=== PATIENT | female | born 1990 | race Caucasian/White ===

== ENCOUNTER 2020-05-11 12:40 | Emergency (ER) | payer OTHER, SELFPAY ==
--- NOTE | 2020-05-11 12:48 | ED.GENADULT ---
HPI - General Adult General Chief complaint: Headache Stated complaint: Migraine Time Seen by Provider: 05/11/20 12:48 Source: patient Mode of arrival: ambulatory Limitations: no limitations History of Present Illness HPI narrative: 29-year-old female patient presents to the [facility] with complaints of a headache for the past 4 days. Patient states the headache is located right above the right eye. Patient states she is also had a little bit of a stuffy nose and runny nose releasing the as well. Denies any fevers, body aches or chills. Patient states she has tried Tylenol and ibuprofen but denies take anything for her headache today. Patient denies having a history of migraines in the past and states she has not medicated for it. Related Data Home Medications Medication Instructions Recorded Confirmed etonogestrel [Nexplanon] 1 implant SUBDERMAL ONCE 05/11/20 05/11/20 Allergies Allergy/AdvReac Type Severity Reaction Status Date / Time No Known Allergies Allergy Verified 05/11/20 13:14 Review of Systems Review of Systems: Narrative: CONSTITUTIONAL: Denies fever, chills, or sweats. EYES: Denies visual changes, redness, or discharge. ENT: Positive rhinorrhea, congestion, denies sore throat, or otalgia. CARDIOVASCULAR: Denies chest pain, palpitations, or edema. RESPIRATORY: Denies cough or dyspnea. GASTROINTESTINAL: Denies abdominal pain, nausea, vomiting, or diarrhea. GENITOURINARY: Denies dysuria or hematuria. SKIN: Denies rash or itching. MUSCULOSKELETAL: Denies back pain, joint pain, or myalgia. NEUROLOGIC: Positive headache, denies numbness, or weakness. PSYCHIATRIC: Denies anxiety or depression. PMFSH Past Medical History Medical History (Updated 05/11/20 @ 13:27 by STEFF Emanuel) Tinea versicolor Surgical History Surgical History (Updated 05/11/20 @ 12:48 by STEFF Emanuel) Hx of cholecystectomy Comments At the time of my signature I agree with nursing past medical history, surgical, social, and family history. There is no relevant family history pertinent to the presenting complaint. Exam Narrative: Exam Narrative: GENERAL: Well-appearing, well-nourished, and in no acute distress. HEAD: Normocephalic, atraumatic. EYES: PERRLA and EOMI. ENT: Nares with erythema and edema noted bilaterally but more so on the left nare, no rhinorrhea or epistaxis. Mucous membranes moist. Posterior pharynx with some postnasal drip and a little bit of erythema noted. Bilateral TMs are clear no erythema or foreign bodies to the canal. NECK: Supple. No lymphadenopathy CHEST: Clear to auscultation. No respiratory distress. HEART: Regular rate and rhythm. No murmur heard. Normal peripheral pulses. ABDOMEN: Soft, nontender, nondistended, normal active bowel sounds. EXTREMITIES: Normal range of motion. No edema. SKIN: Warm, dry, no rash. NEURO: Alert and oriented x4, GCS 15. Cranial nerves II through XII grossly intact. No focal neurological deficits. Normal muscle strength and tone. Normal deep tendon reflexes. Negative Babinski, normal finger to nose coordination he had normal heel to shaw glide. Speech is clear. Normal gait. Negative Romberg and no pronator drift Course Vital Signs Vital signs: Vital Signs Temperature 36.8 C 05/11/20 13:10 Pulse Rate 94 05/11/20 13:10 Respiratory Rate 16 05/11/20 13:10 Blood Pressure 118/64 05/11/20 13:10 Pulse Oximetry 99 05/11/20 13:10 Temperature 36.8 C 05/11/20 13:10 Pulse Rate 94 05/11/20 13:10 Respiratory Rate 16 05/11/20 13:10 Blood Pressure 118/64 05/11/20 13:10 Pulse Oximetry 99 05/11/20 13:10 Vital signs reviewed Medical Decision Making Differential Diagnosis Differential Diagnosis: Differential diagnosis: Migraine, cluster headache, tension headache, sinusitis, dental infection, TMJ problems, pseudotumor cerebri, meningitis, encephalitis, giant cell arteritis, glaucoma, subarachnoid hemorrhage, subdural or epidural
[2020-05-11 13:10] VITALS: BP 118/64; PULSE 94; RESP 16; TEMP 36.8; O2SAT 99
[2020-05-12 12:21] LABS: SARS-CoV-2 RNA PCR Negative
== END 2020-05-11 13:30 | disposition home or self-care (01) ==
PROVIDERS: Emergency Provider Nurse Practitioner Family
DX: J00 Acute nasopharyngitis [common cold] (principal); J01.90 Acute sinusitis, unspecified; R51.9 Headache, unspecified; J30.2 Other seasonal allergic rhinitis; Z20.822 Contact with and (suspected) exposure to COVID-19
CPT/HCPCS: 99213; C9803; G0463; U0003; U0005

== ENCOUNTER 2020-12-04 08:45 | Emergency (ER) | payer OTHER, SELFPAY ==
[2020-12-04 08:51] VITALS: BP 134/71; PULSE 88; RESP 16; TEMP 36.6; O2SAT 100
[2020-12-04 09:02] VITALS: BP 134/71; PULSE 88; RESP 16; TEMP 36.6; O2SAT 100
--- NOTE | 2020-12-04 09:12 | ED.ABDPAIN ---
HPI - Abdominal Pain General Chief Complaint: Abdominal Pain Stated Complaint: lower left pain with nausea Time Seen by Provider: 12/04/20 09:13 Source: patient, RN notes reviewed and old records reviewed Mode of arrival: ambulatory Limitations: no limitations History of Present Illness HPI narrative: 30-year-old female who presents to [facility] with complaints of sharp left lower intermittent abdominal pain for the past 3 days. with constant nausea voiced with no emesis or diarrhea, states normal bowel movement yesterday. Patient reports that she had Nexplanon removed 2 months ago and that was her last menses, did a home test recently and was negative. Patient denies any burning or pain with urination, denies any vaginal discharge or any concern for STD's.Patient reports that she has had no history of kidney stones or any previous ovarian cysts,has taken Pepto Bismol for her nausea. MD elicited complaint: abdominal pain and other (nausea) Related Data Allergies Allergy/AdvReac Type Severity Reaction Status Date / Time No Known Allergies Allergy Verified 12/04/20 09:02 Review of Systems Review of Systems: CONSTITUTIONAL: Denies fever, chills, or sweats. EYES: Denies visual changes, redness, or discharge. ENT: Denies rhinorrhea, congestion, sore throat, or otalgia. CARDIOVASCULAR: Denies chest pain, palpitations, or edema. RESPIRATORY: Denies cough or dyspnea. GASTROINTESTINAL: Intermittent sharp left abdominal pain, nausea,no vomiting, or diarrhea. GENITOURINARY: Denies dysuria or hematuria, no vaginal discharge SKIN: Denies rash or itching. MUSCULOSKELETAL: Denies back pain, joint pain, or myalgia. NEUROLOGIC: Denies headache, numbness, or weakness. PSYCHIATRIC: Denies anxiety or depression. All systems reviewed & are unremarkable except as noted in HPI and below PMFSH Past Medical History Medical History Tinea versicolor Surgical History Surgical History Hx of cholecystectomy Family History Family History (Updated 12/05/20 @ 17:26 by Haylee Doss NP) Other No significant family history Social History Social History (Updated 12/05/20 @ 17:26 by Haylee Doss NP) Years smoked: 8 Smoking status: Current every day smoker Alcohol intake: current Alcohol use details: rare social Substance use: never Living arrangements: with family Gender identity (if verbalized by the patient): Female Comments At time of signature, agree with nursing past medical, surgical, social and family history. There is no relevant family history pertinent to the presenting complaint Exam Narrative: GENERAL: Well-appearing, well-nourished, and in no acute distress. HEAD: Normocephalic, atraumatic. EYES: PERRLA and EOMI. ENT: Nares clear, no rhinorrhea or epistaxis. Mucous membranes moist.TM's normal with good light reflex, throat pink with no lesions or exudates, no tonsil enlargement NECK: Supple.no lymphadenopathy CHEST: Clear to auscultation. No respiratory distress.no cough or tachypnea, SAO2 100% on room air HEART: Regular rate and rhythm. No murmur heard. Normal peripheral pulses. ABDOMEN: Soft, mild tenderness on palpation left lower abdomen, nondistended, normal active bowel sounds, reports nausea no emesis or diarrhea, No CVA tenderness on exam. EXTREMITIES: Normal range of motion. No edema. SKIN: Warm, dry, no rash. NEURO: No focal deficits. Alert and oriented x3. Course Vital Signs Vital signs: Vital Signs Temperature 36.6 C 12/04/20 08:51 Pulse Rate 88 12/04/20 08:51 Respiratory Rate 16 12/04/20 08:51 Blood Pressure 134/71 12/04/20 08:51 Pulse Oximetry 100 12/04/20 08:51 Temperature 36.6 C 12/04/20 09:02 Pulse Rate 88 12/04/20 09:02 Respiratory Rate 16 12/04/20 09:02 Blood Pressure 134/71 12/04/20 09:02 Pulse Oximetry 100 12/04/20 09:02
== END 2020-12-04 09:40 | disposition home or self-care (01) ==
PROVIDERS: Emergency Provider Registered Nurse
DX: N39.0 Urinary tract infection, site not specified (principal); R11.0 Nausea; F17.200 Nicotine dependence, unspecified, uncomplicated
CPT/HCPCS: 81003; 81025; 87077; 87086; 87088; 87186; 99213; G0463

== ENCOUNTER 2021-04-23 14:29 | Emergency (ER) | payer OTHER, SELFPAY ==
[2021-04-23 14:38] VITALS: BP 131/73; PULSE 96; RESP 16; TEMP 37.4; O2SAT 99
[2021-04-23 14:39] VITALS: BP 131/73; PULSE 96; RESP 16; TEMP 37.4; O2SAT 99
--- NOTE | 2021-04-23 14:48 | ED.NAVMDI ---
HPI - Nausea/Vomiting/Diarrhea General Chief complaint: Urogenital-Female Stated complaint: Dizzy nausea and lower left side pain Time Seen by Provider: 04/23/21 14:30 Source: patient and RN notes reviewed History of Present Illness HPI Narrative: Patient is a 30-year-old female who presents the urgent care with complaints of left lower sided pain with intermittent nausea. Patient states she is also had intermittent bouts of dizziness upon standing quickly. States that it started a couple days ago and she has not been able to go to work for the last 2 days due to the pain. Patient also reports of urinary frequency however she has been drinking a lot of water . Denies of dysuria, urgency, fever, vomiting, diarrhea. Denies of any history of kidney stones or ovarian cyst. States that she made a bowel movement yesterday. Denies any blood in the urine. No other acute complaints. No acute distress noted. Plan of the plan of care. Some parts of this dictation were generated by voice recognition software and may contain typographical and/or grammatical inaccuracies. Related Data Home Medications Medication Instructions Recorded Confirmed No Home Medications 04/23/21 04/23/21 Allergies Allergy/AdvReac Type Severity Reaction Status Date / Time No Known Allergies Allergy Verified 04/23/21 14:38 Review of Systems Review of Systems: CONSTITUTIONAL: Denies fever, chills, or sweats. EYES: Denies visual changes, redness, or discharge. ENT: Denies rhinorrhea, congestion, sore throat, or otalgia. CARDIOVASCULAR: Denies chest pain, palpitations, or edema. RESPIRATORY: Denies cough or dyspnea. GASTROINTESTINAL: Reports of lower left abdominal pain with intermittent nausea GENITOURINARY: Denies dysuria or hematuria. SKIN: Denies rash or itching. MUSCULOSKELETAL: Denies back pain, joint pain, or myalgia. NEUROLOGIC: Denies headache, numbness, or weakness. All other systems reviewed are negative, except as documented in HPI. [facility] Past Medical History Medical History Tinea versicolor Surgical History Surgical History Hx of cholecystectomy Family History Family History (Updated 12/05/20 @ 17:26 by Haylee Doss NP) Other No significant family history Social History Social History (Updated 12/05/20 @ 17:26 by Haylee Doss NP) Years smoked: 8 Smoking status: Current every day smoker Alcohol intake: current Alcohol use details: rare social Substance use: never Gender identity (if verbalized by the patient): Female Comments At the time of my signature, I reviewed and agree with the nursing past medical, surgical, social, and family history. There is no relevant family history pertinent to the patient complaint. Exam Narrative: GENERAL: This is a well-nourished, well-developed patient, in no apparent distress. HEAD: normocephalic, atraumatic. EYES: PERRL. Sclera clear/white. Vision is grossly intact. EARS: External ears normal NOSE: External nose normal with no obvious nasal discharge, nares without redness, no rhinorrhea. THROAT: Mucous membranes moist NECK: Neck supple CARDIOVASCULAR: Regular rate and rhythm without murmurs, gallops, or rubs. RESPIRATORY: Clear to auscultation. Breath sounds equal bilaterally. No wheezes, rales, or rhonchi. GASTROINTESTINAL: Abdomen soft, mild left lower tenderness (suspected ovarian cyst), nondistended. Bowel sounds are hyperactive. SKIN: warm, intact with no suspicious lesions or rash, good texture and turgor. NEURO: awake, alert, and oriented to person, place and time. There were no obvious focal neurologic abnormalities. EXTREMITIES: No clubbing, cyanosis, or edema. Course Course Level of Care: Express Care Visit Vital Signs Vital signs: Vital Signs Temperature 99.4 F 04/23/21 14:38 Pulse Rate 96 04/23/21 14:38 Respiratory Rat
== END 2021-04-23 15:03 | disposition home or self-care (01) ==
PROVIDERS: Emergency Provider Nurse Practitioner Family
DX: R10.32 Left lower quadrant pain (principal); F17.200 Nicotine dependence, unspecified, uncomplicated
CPT/HCPCS: 81003; 81025; 99212; G0463

== ENCOUNTER 2021-09-10 13:57 | Emergency (ER) | payer OTHER, SELFPAY ==
[2021-09-10 14:07] VITALS: BP 110/63; PULSE 98; RESP 16; TEMP 37.2; O2SAT 99
--- NOTE | 2021-09-10 15:27 | ED.URI ---
HPI - URI/Sore Throat General Chief Complaint: Upper Respiratory Infection Stated Complaint: watery eyes sore throat cough Time Seen by Provider: 09/10/21 15:27 Source: patient and RN notes reviewed Mode of arrival: ambulatory Limitations: no limitations History of Present Illness HPI Narrative: 30-year-old female presents with concern for watery eyes, sore throat, cough. Reports this is day 2 of symptoms. She reports she is taken [id number] cold medicines without relief. She denies, bodies, sweats, shortness of breath MD elicited complaint: cough and sore throat Related Data Allergies Allergy/AdvReac Type Severity Reaction Status Date / Time No Known Allergies Allergy Verified 09/10/21 14:10 Review of Systems Review of Systems: CONSTITUTIONAL: Reports malaise. Chills, sweats, or fever. EYES: Denies visual changes, redness. Reports watery eyes ENT: Denies rhinorrhea, congestion, sinus pain, otalgia. Reports sore throat. CARDIOVASCULAR: Denies chest pain, palpitations, or edema. RESPIRATORY: Reports cough. Denies dyspnea. GASTROINTESTINAL: Denies abdominal pain, nausea, vomiting, diarrhea SKIN: Denies rash or itching. MUSCULOSKELETAL: Denies myalgia. NEUROLOGIC: Denies headache. All systems reviewed & are unremarkable except as noted in HPI and below PMFSH Past Medical History Medical History Tinea versicolor Surgical History Surgical History Hx of cholecystectomy Family History Family History (Updated 12/05/20 @ 17:26 by Haylee Doss NP) Other No significant family history Social History Social History (Updated 12/05/20 @ 17:26 by Haylee Doss NP) Years smoked: 8 Smoking status: Current every day smoker Alcohol intake: current Alcohol use details: rare social Substance use: never Gender identity (if verbalized by the patient): Female Comments At time of signature, agree with nursing past medical, surgical, social and family history. There is no relevant family history pertinent to the presenting complaint Exam Narrative: GENERAL: Nontoxic appearing and in no acute distress. HEAD: Normocephalic EYES: PERRLA, conjunctivae clear ENT: Nares clear, clear discharge. Mucous membranes moist. TM pearly fontanez with sharp light reflex bilaterally; no tragal tenderness. Oropharynx not erythematous without lesions. Tonsils not enlarged and without exudate, no drooling, no hoarseness, no trismus, uvula midline. NECK: Supple. No lymphadenopathy CHEST: Clear to auscultation, breath sounds equal. No wheezing, rhonchi, rales, or stridor. No respiratory distress, speaks in full sentences. HEART: Regular rate and rhythm. No murmur heard. SKIN: Warm, dry, no rash. NEURO: Alert and oriented x3. PSYCH: Normal mood and affect Course Course Emergency Course: Patient is aware of diagnosis, understands and agrees to treatment plan. Anticipatory guidance given. Patient agrees to follow-up as directed and is aware of reasons to seek care at the emergency department. Portions of this record may have been created with voice recognition software Level of Care: Express Care Visit Vital Signs Vital signs: Vital Signs Temperature 99 F 09/10/21 14:07 Pulse Rate 98 09/10/21 14:07 Respiratory Rate 16 09/10/21 14:07 Blood Pressure 110/63 09/10/21 14:07 Pulse Oximetry 99 09/10/21 14:07 Oxygen Delivery Room Air 09/10/21 14:07 Temperature 99 F 09/10/21 14:07 Pulse Rate 98 09/10/21 14:07 Respiratory Rate 16 09/10/21 14:07 Blood Pressure 110/63 09/10/21 14:07 Pulse Oximetry 99 09/10/21 14:07 Oxygen Delivery Room Air 09/10/21 14:07 Reviewed. MDM - URI/Sore Throat MDM Narrative Medical decision making narrative: Differential diagnosis considered: [place] virus, strep pharyngitis, allergic rhinitis, upper respiratory tract infection, sinusitis, r
== END 2021-09-10 15:35 | disposition home or self-care (01) ==
PROVIDERS: Emergency Provider Nurse Practitioner
DX: U07.1 COVID-19 (principal)
CPT/HCPCS: 87426; 99213; C9803; G0463

== ENCOUNTER 2021-10-18 13:23 | Emergency (ER) | payer OTHER, SELFPAY ==
[2021-10-18 13:28] VITALS: BP 120/73; PULSE 108; RESP 14; TEMP 37.5; O2SAT 100
--- NOTE | 2021-10-18 13:33 | ED.EYEPROB ---
HPI - Eye Problem General Chief complaint: Eye Problems Stated complaint: Eye Problem Time Seen by Provider: 10/18/21 13:36 Source: patient and RN notes reviewed Mode of arrival: ambulatory Limitations: no limitations History of Present Illness HPI Narrative: 30-year-old female presents concern for left upper eyelid swelling, redness, pain. Reports symptoms started Monday and its continued to become more swollen, red, painful. Reports she has been using a warm washcloth and eyedrops that her grandpa had. She denies vision changes or purulent drainage. MD chief complaint: other (Eyelid swelling) Related Data Allergies Allergy/AdvReac Type Severity Reaction Status Date / Time No Known Allergies Allergy Verified 10/18/21 13:32 Review of Systems Review of Systems: CONSTITUTIONAL: Denies malaise, chills, sweats, or fever. EYES: Denies visual changes. Denies eye redness, irritation, discharge. Reports left upper eyelid redness, swelling, pain ENT: Denies rhinorrhea, congestion, sinus pain, otalgia or sore throat. SKIN: Denies rash or itching. NEUROLOGIC: Denies numbness, weakness, or headache. PSYCHIATRIC: Denies anxiety or depression. All systems reviewed & are unremarkable except as noted in HPI and below PMFSH Past Medical History Medical History Tinea versicolor Surgical History Surgical History Hx of cholecystectomy Family History Family History (Updated 12/05/20 @ 17:26 by Haylee Doss NP) Other No significant family history Social History Social History (Updated 12/05/20 @ 17:26 by Haylee Doss NP) Years smoked: 8 Smoking status: Current every day smoker Alcohol intake: current Alcohol use details: rare social Substance use: never Gender identity (if verbalized by the patient): Female Comments At time of signature, agree with nursing past medical, surgical, social and family history. There is no relevant family history pertinent to the presenting complaint Exam Narrative: GENERAL: Well-appearing, well-nourished, and in no acute distress. HEAD: Normocephalic, atraumatic. EYES: PERRLA, sclera clear, and EOMI. No nystagmus. Bilateral conjunctivae clear. lower eyelid unremarkable, no periorbital edema noted. Left upper eyelid hordeolum noted with surrounding erythema, tenderness, edema, edema is isolated to the eyelid ENT: Nares clear, turbinates pink, no rhinorrhea or epistaxis. Mucous membranes moist. TM pearly fontanez with sharp light reflex bilaterally; no tragal tenderness. NECK: Supple. CHEST: No respiratory distress. Speaks in full sentences. HEART: Regular rate and rhythm. SKIN: Warm, dry, no visible rash. NEURO: Alert and oriented x3. PSYCH: Normal mood and affect Course Course Emergency Course: Patient is aware of diagnosis, understands and agrees to treatment plan. Anticipatory guidance given. Patient agrees to follow-up as directed and is aware of reasons to seek care at the emergency department. Portions of this record may have been created with voice recognition software Level of Care: Express Care Visit Vital Signs Vital signs: Reviewed. MDM - Eye Problem MDM Narrative Medical decision making narrative: Consideration of the following conditions may be warranted for the presenting problem, they are not final diagnoses: Bacterial conjunctivitis, allergic conjunctivitis, viral conjunctivitis, foreign body, blepharitis, chalazion, hordeolum, corneal abrasion, preseptal cellulitis, orbital cellulitis. No evidence of proptosis, ophthalmoplegia, vision loss, pain with eye movement. Exam findings show no acute concerns or changes; patient is non-toxic appearing and is in no distress. Patient is appropriate for outpatient treatment and follow-up. Critical Care Time Critical Care Time Critical Care Time: No Discharge Plan Discharge Clinical
== END 2021-10-18 13:47 | disposition home or self-care (01) ==
PROVIDERS: Emergency Provider Nurse Practitioner
DX: H00.014 Hordeolum externum left upper eyelid (principal); F17.200 Nicotine dependence, unspecified, uncomplicated
CPT/HCPCS: 99213; G0463

== ENCOUNTER 2022-06-04 10:36 | Emergency (ER) | payer OTHER, SELFPAY ==
[2022-06-04 10:41] VITALS: BP 119/52; PULSE 117; RESP 20; TEMP 36.8; O2SAT 99
--- NOTE | 2022-06-04 10:59 | ED.URI ---
HPI - URI/Sore Throat General Chief Complaint: Upper Respiratory Infection Stated Complaint: Cough/Chest Congestion Time Seen by Provider: 06/04/22 11:00 Source: patient and RN notes reviewed Mode of arrival: ambulatory Limitations: no limitations History of Present Illness HPI Narrative: 31-year-old female presented for complaint of sinus pressure congestion and right ear pain for 3 days. She has been taking Sudafed for symptoms. Endorses occasional shortness of breath with exertion. States right ear feels full and pressure. Denies tinnitus, ear drainage, dizziness, Chest pain, palpitations, vomiting, diarrhea, fevers or chills. Patient is 33 weeks gestation. MD elicited complaint: cough Related Data Home Medications Medication Instructions Recorded Confirmed vitamin-ferrous fumarate 1 tablet PO DAILY 06/04/22 06/04/22 28 mg iron-folic acid 800 mcg tablet ( Tablet) Allergies Allergy/AdvReac Type Severity Reaction Status Date / Time No Known Allergies Allergy Verified 06/04/22 10:59 Review of Systems Review of Systems: CONSTITUTIONAL: Denies malaise, chills, sweats, fever EYES: Denies visual changes, redness, or discharge ENT: Reports rhinorrhea, congestion, sinus pain, otalgia CARDIOVASCULAR: Denies chest pain, palpitations, edema RESPIRATORY: Reports cough, post nasal drainage. Denies dyspnea GASTROINTESTINAL: Denies abdominal pain, nausea, vomiting, diarrhea SKIN: Denies rash or itching MUSCULOSKELETAL: Denies myalgia NEUROLOGIC: Denies headache PMFSH Past Medical History Medical History Tinea versicolor Surgical History Surgical History Hx of cholecystectomy Family History Family History Other No significant family history Social History Social History Years smoked: 8 Smoking status: Current every day smoker Alcohol intake: current Alcohol use details: rare social Substance use: never Living arrangements: with family Gender identity (if verbalized by the patient): Female Exam Narrative: GENERAL: mildly Ill-appearing, nontoxic no acute distress. HEAD: Normocephalic EYES: PERRLA, conjunctivae clear ENT: Mucous membranes moist. nasal congestion. left TM pearly fontanez with normal light reflex; Right TM erythematous and bulging with purulent effusion; no tragal tenderness. Oropharynx erythematous without lesions or exudate, no drooling, no hoarseness, no trismus, uvula midline. No tripod positioning, muffled voice, soft palate or pharyngeal wall bulging NECK: Supple. No lymphadenopathy CHEST: Clear to auscultation, breath sounds equal. No wheezing, rhonchi, rales, or stridor. No respiratory distress, speaks in full sentences. HEART: Regular rate and rhythm. No murmur heard. ABD: Gravid SKIN: Warm, dry, no rash. NEURO: Alert and oriented x3. PSYCH: Normal mood and affect Course Course Emergency Course: Patient is aware of diagnosis, understands and agrees to treatment plan. Anticipatory guidance given. Patient agrees to follow-up as directed and is aware of reasons to seek care at the emergency department. Portions of this record may have been created with voice recognition software Level of Care: Express Care Visit Vital Signs Vital signs: Vital Signs Temperature 98.2 F 06/04/22 10:41 Pulse Rate 117 H 06/04/22 10:41 Respiratory Rate 20 06/04/22 10:41 Blood Pressure 119/52 L 06/04/22 10:41 Pulse Oximetry 99 06/04/22 10:41 Oxygen Delivery Room Air 06/04/22 10:41 Temperature 98.2 F 06/04/22 10:41 Pulse Rate 117 H 06/04/22 10:41 Respiratory Rate 20 06/04/22 10:41 Blood Pressure 119/52 L 06/04/22 10:41 Pulse Oximetry 99 06/04/22 10:41 Oxygen Delivery Room Air 06/04/22 10:41
== END 2022-06-04 11:08 | disposition home or self-care (01) ==
PROVIDERS: Emergency Provider Nurse Practitioner Family; PCP Emergency Medicine
DX: H66.001 Acute suppurative otitis media without spontaneous rupture of ear drum, right ear (principal); F17.210 Nicotine dependence, cigarettes, uncomplicated
CPT/HCPCS: 99213; G0463

== ENCOUNTER 2023-05-23 12:42 | Emergency (ER) | payer OTHER, SELFPAY ==
[2023-05-23 12:46] VITALS: BP 113/51; PULSE 100; RESP 20; TEMP 36.7; O2SAT 100
--- NOTE | 2023-05-23 12:58 | ED.URI ---
HPI - URI/Sore Throat General Stated Complaint: upper respiratory Time Seen by Provider: 05/23/23 12:58 Source: patient and RN notes reviewed Mode of arrival: ambulatory Limitations: no limitations History of Present Illness HPI Narrative: 32 y/o female presented for c/o Headache, body aches, sinus congestion, cough, fever/chills. Onset 3 days. Endorses her kids have been sick with similar symptoms. Taking OTC meds without relief. Denies sob, wheezing, n/v/d. MD elicited complaint: cough Related Data Home Medications Medication Instructions Recorded Confirmed No Home Medications 05/23/23 05/23/23 Allergies Allergy/AdvReac Type Severity Reaction Status Date / Time No Known Allergies Allergy Verified 05/23/23 12:59 Review of Systems Review of Systems: CONSTITUTIONAL: Endorses malaise, chills, sweats, fever EYES: Denies visual changes, redness, or discharge ENT: Reports rhinorrhea, congestion, denies otalgia, sore throat CARDIOVASCULAR: Denies chest pain, palpitations, edema RESPIRATORY: Reports cough, post nasal drainage. Denies dyspnea GASTROINTESTINAL: Denies abdominal pain, nausea, vomiting, diarrhea SKIN: Denies rash or itching MUSCULOSKELETAL: Endorses myalgia NEUROLOGIC: Endorses headache PMFSH Past Medical History Medical History Tinea versicolor Surgical History Surgical History Hx of cholecystectomy Family History Family History Other No significant family history Social History Social History Years smoked: 8 Smoking status: Current every day smoker Alcohol intake: current Alcohol use details: rare social Substance use: never Living arrangements: with family Gender identity (if verbalized by the patient): Female Exam Narrative: GENERAL: mildly Ill-appearing, nontoxic EYES: PERRLA, conjunctivae clear ENT: Mucous membranes moist. TMs pearly fontanez with dull light reflex bilaterally; no tragal tenderness. Oropharynx not erythematous without lesions or exudate, no drooling, no hoarseness, no trismus, uvula midline. No tripod positioning, muffled voice, soft palate or pharyngeal wall bulging NECK: Supple. No lymphadenopathy CHEST: Clear to auscultation, breath sounds equal. No wheezing, rhonchi, rales, or stridor. No respiratory distress, speaks in full sentences. HEART: Regular rate and rhythm. No murmur heard. SKIN: Warm, dry, no rash. NEURO: Alert and oriented x3. PSYCH: Normal mood and affect Course Course Emergency Course: Patient is aware of diagnosis, understands and agrees to treatment plan. Anticipatory guidance given. Patient agrees to follow-up as directed and is aware of reasons to seek care at the emergency department. Portions of this record may have been created with voice recognition software Level of Care: Express Care Visit Vital Signs Vital signs: Vital Signs Temperature 98.1 F 05/23/23 12:46 Pulse Rate 100 05/23/23 12:46 Respiratory Rate 20 05/23/23 12:46 Blood Pressure 113/51 L 05/23/23 12:46 Pulse Oximetry 100 05/23/23 12:46 Oxygen Delivery Room Air 05/23/23 12:46 Temperature 98.1 F 05/23/23 12:46 Pulse Rate 100 05/23/23 12:46 Respiratory Rate 20 05/23/23 12:46 Blood Pressure 113/51 L 05/23/23 12:46 Pulse Oximetry 100 05/23/23 12:46 Oxygen Delivery Room Air 05/23/23 12:46 reviewed MDM - URI/Sore Throat MDM Narrative Medical decision making narrative: Results of flu and COVID reviewed with patient. Discussed physical exam findings. Advised supportive measures and signs/symptoms to go to the ER. Pt is appropriate for outpt treatment and f/u. Differential Diagnosis Differential diagnosis: Likely upper respiratory infection, otitis media, sinusitis, viral infection, b
== END 2023-05-23 13:14 | disposition home or self-care (01) ==
PROVIDERS: Emergency Provider Nurse Practitioner Family
DX: B34.9 Viral infection, unspecified (principal); Z20.822 Contact with and (suspected) exposure to COVID-19; F17.290 Nicotine dependence, other tobacco product, uncomplicated
CPT/HCPCS: 87426; 87804; 99213; G0463

== ENCOUNTER 2024-05-26 14:22 | Emergency (ER) | payer SELFPAY ==
--- OUTSIDE RECORDS SUMMARY | 2024-05-26 14:24 | XMS_ITS | Encounter Summary ---
Author Organization [facility] Healthcare Address [address] [place] [address] Care Team Providers Care X Ray Developing Machine Operator Name Role Phone Rosa Figueroa MD Primary Care Provider [phone] No, Physician Primary Care Provider [phone] Michael Carranza MD Unavailable Milli Kitchen MD Primary Care Provider [phone] Encounter Details Date Type Department Care Team (Late st Contact Info) Description 09/02/2017 Telephone Primary Care Medicine Clinic [address] [facility] [address] [place] [address] Eamon Mckeon MD [address] [place] [address] Social History Tobacco Use Types Packs/Day Years Used Date Smoking Tobacco: Every Day Smokeless Tobacco: Never Alcohol Use Standard Drinks/Week Comments No 0 (1 standard drink = 0.6 oz pur e alcohol) Comments No Sex and Gender Information Value Date Recorded Sex Assigned at Not on file 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 08/28/2019 08/28/2019 09/11/2019 3:0 5 AM CDT COVID: Suspected 06/02/2021 06/02/2021 06/03/2021 12:41 AM CDT documented as of this encounter Care Teams X Ray Developing Machine Operator Relationship Specialty Start Date End Date Rosa Figueroa MD [address] [facility] [address] [place] [address] PCP - General Internal Medicine 09/02/17 12/14/18 No, Physician PCP - General 12/15/18 12/25/23 Milli Kitchen MD [address] [facility] [address] [place], [place] [id number] PCP - General Pediatrics 12/26/23 Michael Carranza MD [address] [facility] [address] HANNAH Kelly [address] [address] Consulting Physician Obstetrics and Gynecology 08/01/22 documented as of this encounter
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
[2024-05-26 14:28] VITALS: BP 125/53; PULSE 102; RESP 20; TEMP 37.2; O2SAT 97
[2024-05-26 14:43] LABS: EDSTREPNEGPOS1 Positive (Negative)
--- NOTE | 2024-05-26 14:54 | ED.GENADULT ---
HPI - General Adult General Chief complaint: Upper Respiratory Infection Stated complaint: throat/cough Source: patient Mode of arrival: ambulatory Limitations: no limitations History of Present Illness HPI narrative: Patient presents for evaluation of sore throat and cough for the last 3 weeks. Her son recently had similar symptoms. He did not have a medical evaluation and his symptoms have improved. She denies any fever, chills, cough, shortness of breath, nausea vomiting diarrhea. She has tried taking DayQuil, NyQuil, and several other gmps-wfs-animxbf medications without any improvement in her symptoms. She does not smoke. Related Data Allergies Allergy/AdvReac Type Severity Reaction Status Date / Time No Known Allergies Allergy Verified 05/26/24 14:32 Review of Systems Review of Systems: CONSTITUTIONAL: Denies fever, chills, or sweats. EYES: Denies visual changes, redness, or discharge. ENT: Reports sore throat. Denies rhinorrhea, congestion, or otalgia. CARDIOVASCULAR: Denies chest pain, palpitations, or edema. RESPIRATORY: Reports cough. Denies dyspnea. GASTROINTESTINAL: Denies abdominal pain, nausea, vomiting, or diarrhea. GENITOURINARY: Denies dysuria or hematuria. SKIN: Denies rash or itching. MUSCULOSKELETAL: Denies back pain, joint pain, or myalgia. NEUROLOGIC: Denies headache, numbness, dizziness, or weakness. PSYCHIATRIC: Denies anxiety or depression. [facility] Past Medical History Medical History Tinea versicolor Surgical History Surgical History Hx of cholecystectomy Family History Family History Other No significant family history Social History Social History (Updated 05/26/24 @ 15:19 by Deshaun Frias [facility], ) Years smoked: 8 Alcohol intake: current Alcohol use details: rare social Substance use: never Living arrangements: with family Gender identity (if verbalized by the patient): Female Exam Narrative: GENERAL: Well-appearing, well-nourished, and in no acute distress. HEAD: Normocephalic, atraumatic. EYES: PERRLA and EOMI. ENT: Nares clear, no rhinorrhea or epistaxis. Mucous membranes moist. Oropharynx without tonsillar hypertrophy exudate or other lesions. Bilateral TMs pearly fontanez nonbulging NECK: Supple. No adenopathy or masses. No carotid bruits or JVD CHEST: Clear to auscultation. No respiratory distress. No wheezes rales or rhonchi HEART: Regular rate and rhythm. No murmur heard. Normal peripheral pulses. ABDOMEN: Soft, nontender, nondistended, normal active bowel sounds. EXTREMITIES: Normal range of motion. No edema. SKIN: Warm, dry, no rash. NEURO: No focal deficits. Alert and oriented x3. PSYCH: Normal mood and affect. Course Course Emergency Course: This is a 33-year-old female who presented for evaluation of sore throat and cough. Rapid strep positive. Will treat with amoxicillin. Increase hydration. Lgbz-ybt-svxpbqm agents for symptom management. Follow up with primary provider. Go to the ER for worsening symptoms. Patient in agreement with plan of care. Level of Care: Express Care Visit Vital Signs Vital signs: Vital Signs Temperature 37.2 C 05/26/24 14:28 Pulse Rate 102 H 05/26/24 14:28 Respiratory Rate 20 05/26/24 14:28 Blood Pressure 125/53 L 05/26/24 14:28 Pulse Oximetry 97 05/26/24 14:28 Oxygen Delivery Room Air 05/26/24 14:28 Temperature 37.2 C 05/26/24 14:28 Pulse Rate 102 H 05/26/24 14:28 Respiratory Rate 20 05/26/24 14:28 Blood Pressure 125/53 L 05/26/24 14:28 Pulse Oximetry 97 05/26/24 14:28 Oxygen Delivery Room Air 05/26/24 14:28 Medical Decision Making Vital Signs Vital Signs: Vital Signs Temperature 37.2 C 05/26/24 14:28 Pulse Rate 102 H 05/26/24 14:28 Respiratory Rate 20 05/26/24 14:28 Blood Pressure 125/53 L 05/26/24 14:28 Pulse Oximetry 97 05/26/24 14:28 Oxygen Delivery Room Air 05/26/24 14:28 Temperature 37.2 C 05/26/24 14:28 Pulse Rate 102 H 05/26/24 14:28 Respiratory Rate 20 05/26/24 14:28 Blood Pressure 125/53 L 05/26/24 14:28 Pulse Oximetry 97 05/26/24 14:28 Oxygen Delivery Room Air 05/26/24 14:28 Lab Data Labs: Lab Results 05/26/24 Range/Units 14:30 POC Grp A Strep Screen Positive (Negative) Discharge Plan Discharge Clinical Impression: Strep throat Patient Disposition: Home, Self-Care Condition: Stable Instructions: Antibiotic Form, Strep Throat (ED) Patient Language: Swedish Prescriptions: New amoxicillin 500 mg capsule 500 mg PO Q12H Qty: 20 0RF Follow-up/Referrals: Otto Valenzuela MD [Physician] - Stand Alone Forms: Work/School Release IP Time of Disposition: 14:54
== END 2024-05-26 14:58 | disposition home or self-care (01) ==
PROVIDERS: Emergency Provider Nurse Practitioner
DX: J02.0 Streptococcal pharyngitis (principal)
CPT/HCPCS: 87880; 99213; G0463

== ENCOUNTER 2025-02-24 10:07 | Emergency (ER) | payer OTHER, SELFPAY ==
--- NOTE | 2025-02-24 10:17 | ED_ITS ---
HPI - URI/Sore Throat General Chief Complaint: Nausea/Vomiting/Diarrhea Stated Complaint: Diarrhea/Fever/Sore Throat Time Seen by Provider: 02/24/25 10:25 Source: patient Mode of arrival: ambulatory Limitations: no limitations History of Present Illness HPI Narrative: Janki is a 34-year-old female patient presenting to the clinic today with complaints tactile fever, sore throat, diarrhea, nausea, and headache x3 days. Patient reports yesterday she had 6-7 episodes of diarrhea but no diarrhea this morning. No blood in her stool. She has not checked her temperature but has felt warm. Has not taken any medications for her symptoms. Related Data Allergies Allergy/AdvReac Type Severity Reaction Status Date / Time No Known Allergies Allergy Verified 02/24/25 10:20 Review of Systems Review of Systems: Pertinent positives per HPI. Patient denies any rash, visual changes, dizziness, cough, shortness of breath, chest pain, palpitations, nausea, vomiting, constipation, abdominal pain, or any urinary issues. [facility] Past Medical History Medical History Tinea versicolor Surgical History Surgical History Hx of cholecystectomy Family History Family History Other No significant family history Social History Social History Years smoked: 8 Alcohol intake: current Alcohol use details: rare social Substance use: never Living arrangements: with family Gender identity (if verbalized by the patient): Female Comments At the time of my signature, I reviewed and agree with the nursing past medical, surgical, social, and family history. There is no relevant family history pertinent to the patient complaint. Exam Narrative: General: Well-developed, well nourished, in no apparent distress Head: Normocephalic, atraumatic Eyes: Pupils equally round and reactive to light bilaterally, EOM intact, sclera and conjunctive clear, no discharge, lids normal Ears: TMs intact and clear, ear canals clear, no drainage, grossly hearing normal. Nose: Nares patent, no discharge, no inflammation, no sinus tenderness. Mouth: Oral pharynx red without lesions or masses, good dentition, MMM. Neck: Supple, trachea midline, mild enlargement of anterior or posterior cervical nodes, no thyroid masses or goiter palpable. Cardio: Regular rate and rhythm, s1 and s2 normal, no murmur appreciated. Resp: Clear to auscultation bilaterally, no rhonchi, rales, wheezing or rubs Abdomen: Soft, pliable, bowel sounds present in all quadrants, non-tender to palpation, no organomegly, no CVAT tenderness. Course Course Level of Care: Express Care Visit Vital Signs Vital signs: Vital Signs Temperature 36.8 C 02/24/25 10:20 Pulse Rate 86 02/24/25 10:20 Respiratory Rate 18 02/24/25 10:20 Blood Pressure 118/62 02/24/25 10:20 Pulse Oximetry 100 02/24/25 10:20 Oxygen Delivery Room Air 02/24/25 10:20 Temperature 36.8 C 02/24/25 10:20 Pulse Rate 86 02/24/25 10:20 Respiratory Rate 18 02/24/25 10:20 Blood Pressure 118/62 02/24/25 10:20 Pulse Oximetry 100 02/24/25 10:20 Oxygen Delivery Room Air 02/24/25 10:20 MDM MDM Narrative Medical decision making narrative: At the time of visit patient is resting comfortably on the exam table. Patient appears to be nontoxic. Complaints tactile fever, sore throat, nausea, diarrhea, and headache x3 days. Patient reports yesterday she had 6-7 episodes of diarrhea but no diarrhea this morning. No blood in her stool. She has not checked her temperature but has felt warm. Has not taken any medications for her symptoms. On exam patient has bilateral TMs intact and clear, no nasal drainage, no anterior turbinate inflammation, no sinus pressure, oral pharynx red with mild cervical lymphadenopathy, heart rates regular rate and rhythm, lung sounds are clear, abdomen soft, pliable, nondistended, bowel sounds present all 4 quadrants, no CVAT tenderness, no organomegaly. COVID, flu, and strep test were ordered. Labs: COVID, influenza, and strep test were all negative in the clinic today. We will send strep for culture. Plan: I suspect patient has viral pharyngitis, headache, diarrhea. Recommend taking [id number] Imodium as needed for diarrhea as long as there is no blood in her stool. Will send in for nausea. Supportive measures were discusse d with the patient and they voiced understanding discharge instructions and agrees to treatment plan. Return precautions reviewed Differential Diagnosis Differential Diagnosis: Differential diagnostic considerations for upper respiratory infection include upper respiratory infection, croup, otitis media, sinusitis, viral infection, bronchitis, influenza, pharyngitis, strep, uvulitis, dehydration, gastroenteritis, headache, migraine Lab Data Labs: Lab Results 02/24/25 Range/Units 10:18 POC Influenza A Ag Negative (Negative) POC Influenza B Ag Negative (Negative) POC SARS CoV-2 Ag Negative (Negative) POC Grp A Strep Screen Negative (Negative) Discharge Plan Discharge Clinical Impression: Acute diarrhea Pharyngitis Qualifiers: Pharyngitis/tonsillitis etiology: unspecified etiology Qualified Code(s): J02.9 - Acute pharyngitis, unspecified Headache Qualifiers: Headache type: unspecified Headache chronicity pattern: acute headache Intractability: not intractable Qualified Code(s): R51.9 - Headache, unspecified Patient Disposition: Home Condition: Stable Instructions: Antibiotic Form, Pharyngitis (ED), Acute Headache (ED), Acute Diarrhea (ED) Additional Instructions: COVID, influenza, and strep test were all negative in the clinic today. We will send strep for culture if this comes back positive we will contact him place you on antibiotics at that time. Take prescription medications only as prescribed-ondansetron May take Imodium as needed for diarrhea as long as there is no blood in your stool. Increase fluids and stay well hydrated May take Tylenol or motrin as directed on bottle for pain/fever May use Flonase 1 spray in each nare daily May take OTC antihistamines such as Zyrtec or Claritin daily as directed on bottle May apply Vicks vapor rub to chest to open sinuses Sinus rinses for congestion Cepacol spray, cough drops, throat lozenges, warm tea with honey/lemon, gargle salt water to soothe throat BRAT diet for diarrhea Clear liquids x 24 hours then advance as tolerated for nausea/vomiting Go to the ED if you develop a worsening in your condition- high fever not controlled by Tylenol or Motrin, dehydration, weakness, lethargy, shortness of breath, or chest pain. Follow up with your PCP in 3-5 days if symptoms persist. Patient Language: Yakut Prescriptions: New ondansetron 8 mg tablet,disintegrating 8 mg PO Q8H PRN (Reason: nausea and vomiting) 3 Days Qty: 10 0RF Follow-up/Referrals: PHYSICIAN,JET HANDLER [Primary Care Provider, Internal Medicine] Stand Alone Forms: Work/School Release IP Time of Disposition: 10:35 Quality NIHSS Nursing Documentation ED NIHSS nursing documentation: reviewed/agree
[2025-02-24 10:20] VITALS: BP 118/62; PULSE 86; RESP 18; TEMP 36.8; O2SAT 100
[2025-02-24 10:28] LABS: EDSTREPNEGPOS1 Negative (Negative)
[2025-02-24 10:30] LABS: EDINFLUASCREEN Negative (Negative); EDINFLUBSCREEN Negative (Negative)
[2025-02-24 10:35] LABS: EDCOVIDSCREEN Negative (Negative)
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
--- OUTSIDE RECORDS SUMMARY | 2025-02-24 11:31 | XMS_ITS | Encounter Summary ---
Author Organization [facility] Healthcare Address [address] [place] [address] Care Team Providers Care Edge Sander Name Role Phone Rosa Figueroa MD Primary Care Provider [phone] No, Physician Primary Care Provider [phone] Michael Carranza MD Unavailable Milli Kitchen MD Primary Care Provider [phone] Encounter Details Date Type Department Care Team (Late st Contact Info) Description 09/02/2017 Telephone [facility] Primary Care Medicine Clinic [address] 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
== END 2025-02-24 10:44 | disposition home or self-care (01) ==
PROVIDERS: Emergency Provider Nurse Practitioner Family
DX: R19.7 Diarrhea, unspecified (principal); J02.9 Acute pharyngitis, unspecified; R51.9 Headache, unspecified; Z20.822 Contact with and (suspected) exposure to COVID-19
CPT/HCPCS: 87081; 87426; 87804; 87880; 99213; G0463